=== PATIENT | female | born 1970 | race Native Hawaiian/Other Pacific Islander ===

== ENCOUNTER 2018-11-10 05:50 | Inpatient (IN) | payer OTHER ==
[2018-11-07 10:46] LABS: BASOPHILS # (AUTO) 0.1 K/uL (0.0-0.2); BASOPHILS % (AUTO) 0.8 % (0.0-2.0); EOSINOPHILS # (AUTO) 0.3 K/uL (0.0-0.4); HEMATOCRIT 36.2 % (36-48); HEMOGLOBIN 11.3 g/dL (12.0-16.0); LYMPHOCYTES # (AUTO) 1.7 K/uL (1.0-5.5); LYMPHOCYTES % (AUTO) 19.1 % (20.5-51.5); MEAN CORPUSCULAR HEMOGLOBIN 24 pg (27-31); MEAN CORPUSCULAR HGB CONC 31 % (32-36); MEAN CORPUSCULAR VOLUME 78 fL (79.0-98.0); MONOCYTES # (AUTO) 0.5 K/uL (0.0-1.0); NEUTROPHILS # (AUTO) 6.1 K/uL (1.8-7.7); NEUTROPHILS % (AUTO) 71.1 % (40.0-70.0); PLATELET COUNT (AUTO) 352 K/uL (130-430); RED BLOOD CELL COUNT(AUTO) 4.64 MIL/uL (4.2-6.2); RED CELL DISTRIBUTION WIDTH 18.4 % (9.0-15.0); WHITE BLOOD COUNT (AUTO) 8.6 K/uL (4.8-10.8)
[2018-11-07 10:51] LABS: BILIRUBIN,URINE NEGATIVE (NEGATIVE); BLOOD, URINE NEGATIVE (NEGATIVE); CLARITY/URINE SL HAZY (CLEAR); COLOR,URINE YELLOW (YELLOW); GLUCOSE,URINE NEGATIVE (NEGATIVE); KETONES,URINE NEGATIVE (NEGATIVE); LEUKOCYTE ESTERASE ,URINE NEGATIVE (NEGATIVE); NITRITE, URINE NEGATIVE (NEGATIVE); PH,URINE 5.5 (5.0-8.0); PROTEIN URINE NEGATIVE (NEGATIVE); UROBILINOGEN,URINE 0.2 (0.2-1.0)
[2018-11-07 11:04] LABS: CALCIUM 8.6 mg/dL (8.4-11.0); CREATININE 0.64 mg/dL (0.55-1.30); POTASSIUM 4.1 mmol/L (3.5-5.1)
[~2018-11-10] VITALS: Ht 170.2 cm; Wt 86.2 kg
[2018-11-10] MEDS ORDERED: LevALBUTEROL HCL 1.25 MG/0.5 ML *CONC.* VIAL.NEB (XOPENEX CONC.) INH SCH (06:30)
[2018-11-10] MEDS ORDERED: LevALBUTEROL HCL 1.25 MG/0.5 ML *CONC.* VIAL.NEB (XOPENEX CONC.) INH ONE (06:46)
[2018-11-10] MEDS ORDERED: CEFAZOLIN SOD 1 GM in D5W 50 ML IV ONE (07:00)
[2018-11-10] MEDS ORDERED: LR 1,000 ML IV SCH ×2 (09:02→10:25)
[2018-11-10] MEDS ORDERED: HYDROmorphone 1 MG INJ. 1 MG/ML AMPUL IVP PRN (09:15)
[2018-11-10] MEDS ORDERED: HYDROmorphone 2 MG/ML VIAL IVP PRN ×2 (09:15)
[2018-11-10] MEDS ORDERED: MEPERIDINE HCL/PF 25 MG/ML DISP.SYRIN IVP PRN (09:15)
[2018-11-10] MEDS ORDERED: OXYCODONE/ACETAMINOPHEN 5-325 TABLET PO PRN (10:30)
[2018-11-10] MEDS ORDERED: ONDANSETRON HCL 4 MG/2 ML VIAL IVP PRN (10:30)
[2018-11-10 10:40] VITALS: BP_SYST 110
[2018-11-10] MEDS ORDERED: SEVOFLURANE 15 MIN GAS INH ONE (10:45)
[2018-11-10] MEDS ORDERED: ROCURONIUM BROMIDE 10 MG/ML (ZEMURON) ONE (10:45)
[2018-11-10] MEDS ORDERED: NS IRRIG SOLN 1000 ML IR ONE (10:45)
[2018-11-10] MEDS ORDERED: LR 1,000 ML IV.SOLN IV ONE (10:45)
[2018-11-10] MEDS ORDERED: CEFAZOLIN 2 GM IVPB PREMIX 50 ML IV ONE (10:45)
[2018-11-10] MEDS ORDERED: MIDAZOLAM HCL 5 MG/ML VIAL (VERSED) IV ONE (10:45)
[2018-11-10] MEDS ORDERED: ONDANSETRON HCL 4 MG/2 ML VIAL ONE (10:45)
[2018-11-10] MEDS ORDERED: PROPOFOL 200MG/ 20ML VIAL (DIPRIVAN) IV ONE (10:45)
[2018-11-10] MEDS ORDERED: ROPIVACAINE HCL/PF 5 MG/ML 0.5% 30 ML VIAL ONE (10:45)
[2018-11-10] MEDS ORDERED: KETOROLAC TROMETHAMINE 30 MG VIAL ONE (10:45)
[2018-11-10] MEDS ORDERED: fentaNYL CITRATE 250 MCG/5 ML AMP ONE (10:45)
[2018-11-10] MEDS ORDERED: DEXAMETHASONE SOD PHOSPHATE 4 MG/ML VIAL ONE (10:45)
[2018-11-10] MEDS ORDERED: HYDROmorphone 2 MG/ML VIAL ONE ×2 (11:19→11:37)
[2018-11-10] MEDS ORDERED: MEPERIDINE HCL/PF 50 MG/ML AMP IM PRN (11:45)
[2018-11-10] MEDS: OXYCODONE/ACETAMINOPHEN 5-325 TABLET PO PRN (18:25)
[2018-11-10] MEDS: IBUPROFEN 800 MG TABLET PO PRN (19:48)
[2018-11-10] MEDS: SIMETHICONE 80 MG TAB.CHEW PO PRN (19:48)
[2018-11-10] MEDS ORDERED: OXYCODONE/ACETAMINOPHEN 5-325 TABLET PO ONE (20:00)
[2018-11-10] MEDS ORDERED: TEMAZEPAM 15 MG CAPSULE PO PRN (21:00)
[2018-11-10] MEDS ORDERED: SENNOSIDES/DOCUSATE SODIUM 1 TAB TABLET(SENOKOT-S) PO PRN ×2 (21:00)
[2018-11-11] MEDS: SIMETHICONE 80 MG TAB.CHEW PO PRN ×2 (06:00→09:05)
[2018-11-11] MEDS: IBUPROFEN 800 MG TABLET PO PRN ×2 (06:00→12:22)
[2018-11-11 07:32] LABS: HEMATOCRIT 28.1 % (36-48)
[2018-11-11] MEDS: OXYCODONE/ACETAMINOPHEN 5-325 TABLET PO PRN (10:38)
== END 2018-11-11 14:15 | disposition home or self-care (01) | DRG 743 ==
LOC: SMU 05:50 → SPU 12:24
PROVIDERS: ADMIT Obstetrics & Gynecology; ATTEND Obstetrics & Gynecology
PROC: 0UB70ZZ Excision of Bilateral Fallopian Tubes, Open Approach (ICD-10-PCS; 2018-11-10)
PROC: 3E0T3BZ Introduction of Anesthetic Agent into Peripheral Nerves and Plexi, Percutaneous Approach (ICD-10-PCS; 2018-11-10)
PROC: 0UT90ZZ Resection of Uterus, Open Approach (ICD-10-PCS; principal; 2018-11-10 07:30)
DX: D25.9 Leiomyoma of uterus, unspecified (principal); E66.9 Obesity, unspecified; J45.909 Unspecified asthma, uncomplicated; Z68.29 Body mass index [BMI] 29.0-29.9, adult
CPT/HCPCS: 36415; 80048; 81003; 84703; 85018-TC; 85025; 86886; 86900; 86901; 87081; 88302; 88307; 94640; J0690; J1100; J1170; J1885; J2175; J2250; J2405; J2704; J3010; J7060; J7120; J7612

== ENCOUNTER 2021-06-18 09:43 | Emergency (ER) | payer OTHER ==
[~2021-06-18] VITALS: Ht 170.2 cm; Wt 86.2 kg
--- NOTE | 2021-06-18 09:52 | NUR ---
Pt to bed 7 for evaluation with report given to CONNIE Grady who will assume care.
[2021-06-18 09:53] VITALS: BP_SYST 114
--- NOTE | 2021-06-18 09:53 | NUR ---
C/C lower Abd pain x 4 days, no trauma, patient AOx4 in no acute distress. Patient in room sitting up in chair, UA cup given for sample.
--- NOTE | 2021-06-18 10:13 | NUR ---
laboratory technology teacher at bedside
[2021-06-18] MEDS ORDERED: NACL 0.9% 1,000 ML IV ONE (10:15)
--- NOTE | 2021-06-18 10:16 | NUR ---
Urine brought to lab
--- NOTE | 2021-06-18 10:25 | NUR ---
EKG dont at bedside, results given to
--- NOTE | 2021-06-18 10:45 | NUR ---
PIV placed to Left forearm 22G, patient tolerated well.
--- NOTE | 2021-06-18 10:45 | NUR ---
Lab at bedside performing blood draw
[2021-06-18 10:47] LABS: BASOPHILS % (AUTO) 0.5 % (0.0-2.0); EOSINOPHILS % (AUTO) 0.3 % (0.0-4.0); HEMATOCRIT 41.7 % (36-48); HEMOGLOBIN 13.9 g/dL (12.0-16.0); LYMPHOCYTES # (AUTO) 0.9 K/uL (1.0-5.5); LYMPHOCYTES % (AUTO) 13.9 % (20.5-51.5); MEAN CORPUSCULAR HEMOGLOBIN 29 pg (27-31); MEAN CORPUSCULAR HGB CONC 33 % (32-36); MEAN CORPUSCULAR VOLUME 87 fL (79.0-98.0); MONOCYTES # (AUTO) 0.5 K/uL (0.0-1.0); MONOCYTES % (AUTO) 8.2 % (1.7-9.3); NEUTROPHILS # (AUTO) 4.8 K/uL (1.8-7.7); NEUTROPHILS % (AUTO) 77.1 % (40.0-70.0); PLATELET COUNT (AUTO) 243 K/uL (130-430); RED BLOOD CELL COUNT(AUTO) 4.77 MIL/uL (4.2-6.2); RED CELL DISTRIBUTION WIDTH 13.9 % (9.0-15.0); WHITE BLOOD COUNT (AUTO) 6.2 K/uL (4.8-10.8)
[2021-06-18 10:56] LABS: ANION GAP 12 (5-15); CALCIUM 9.2 mg/dL (8.4-11.0); CHLORIDE 100 mmol/L (98-107); CREATININE 0.73 mg/dL (0.55-1.30); GLUCOSE 82 mg/dL (70-99); POTASSIUM 3.5 mmol/L (3.5-5.1); SODIUM SERUM 134 mmol/L (136-145); UREA NITROGEN, BLOOD 12 mg/dL (8-21)
--- NOTE | 2021-06-18 11:02 | NUR ---
Patient taken to CT for imaging
[2021-06-18 11:10] LABS: ALANINE AMINOTRANSFERASE 35 U/L (12-78); ALBUMIN 3.2 g/dL (3.4-4.8); ASPARTATE AMINOTRANSFERASE 32 U/L (10-37); LIPASE 58 U/L (73-393)
[2021-06-18 11:11] LABS: GFR AFRICAN AMERICAN 109 mL/min (>90); TOTAL BILIRUBIN < 0.1 mg/dL (0.0-1.0)
--- NOTE | 2021-06-18 11:15 | NUR ---
Patient back from CT
[2021-06-18 11:25] LABS: BILIRUBIN,URINE NEGATIVE (NEGATIVE); BLOOD, URINE 2+ (NEGATIVE); CLARITY/URINE CLEAR (CLEAR); COLOR,URINE YELLOW (YELLOW); GLUCOSE,URINE NEGATIVE (NEGATIVE); KETONES,URINE 3+ (NEGATIVE); LEUKOCYTE ESTERASE ,URINE NEGATIVE (NEGATIVE); NITRITE, URINE POSITIVE (NEGATIVE); PROTEIN URINE 1+ (NEGATIVE); UROBILINOGEN,URINE 0.2 (0.2-1.0)
[2021-06-18 11:43] LABS: BACTERIA,URINE MANY /HPF (None Seen); WBC,URINE 0-3 /HPF (0-3)
[2021-06-18] MEDS ORDERED: cefTRIAXone 1 GM VIAL ONE (11:45)
[2021-06-18] MEDS ORDERED: cefTRIAXone 1 GM in D5W 50 ML IV ONE (11:45)
--- NOTE | 2021-06-18 11:49 | NUR ---
Abx given as ordered, education provided and all questions answered.
[2021-06-18] MEDS ORDERED: CEPH250C PO (12:05)
[2021-06-18 12:13] VITALS: BP_SYST 114
--- NOTE | 2021-06-18 12:14 | NUR ---
Patient given written and verbal discharge instructions and verbalizes understanding. ER MD discussed with patient the results and treatment provided. Patient in stable condition. ID arm band removed. IV catheter removed intact and dressing applied, no active bleeding. Rx of given. Patient educated on pain management and to follow [employer] for questions provided and answered. Medication side effect fact sheet provided.
== END 2021-06-18 12:14 | disposition home or self-care (01) ==
LOC: SED 09:43
DX: E86.0 Dehydration (principal); N39.0 Urinary tract infection, site not specified; E88.89 Other specified metabolic disorders; R53.1 Weakness
CPT/HCPCS: 36415; 71045; 74176; 76376; 80053; 81000; 81025; 82962; 83605; 83690; 83735; 84484; 85025; 87040; 93005; 96361; 96374; 99285; J0696; J7030; J7060

== ENCOUNTER 2023-02-17 06:19 | Emergency (ER) | payer OTHER ==
[~2023-02-17] VITALS: Ht 170.2 cm; Wt 87.1 kg
[~2023-02-17 06:19] MED LIST: CEPH250C PO
[2023-02-17 06:40] VITALS: BP_SYST 116; PULSE 105; RESP 16; TEMP 97.9; O2SAT 97
[2023-02-17 07:16] LABS: BASOPHILS % (AUTO) 0.4 % (0.0-2.0); EOSINOPHILS % (AUTO) 0.2 % (0.0-4.0); HEMATOCRIT 42.6 % (36-48); HEMOGLOBIN 14.3 g/dL (12.0-16.0); LYMPHOCYTES # (AUTO) 0.7 K/uL (1.0-5.5); LYMPHOCYTES % (AUTO) 6.5 % (20.5-51.5); MEAN CORPUSCULAR HEMOGLOBIN 29 pg (27-31); MEAN CORPUSCULAR HGB CONC 34 % (32-36); MEAN CORPUSCULAR VOLUME 88 fL (79.0-98.0); MONOCYTES # (AUTO) 0.9 K/uL (0.0-1.0); MONOCYTES % (AUTO) 7.5 % (1.7-9.3); NEUTROPHILS # (AUTO) 9.8 K/uL (1.8-7.7); NEUTROPHILS % (AUTO) 85.4 % (40.0-70.0); PLATELET COUNT (AUTO) 309 K/uL (130-430); RED BLOOD CELL COUNT(AUTO) 4.86 MIL/uL (4.2-6.2); WHITE BLOOD COUNT (AUTO) 11.4 K/uL (4.8-10.8)
[2023-02-17 07:41] LABS: CALCIUM 8.8 mg/dL (8.4-11.0); CREATININE 0.77 mg/dL (0.55-1.30)
[2023-02-17 07:45] LABS: ALBUMIN 3.5 g/dL (3.4-4.8); BILIRUBIN,DIRECT 0.1 mg/dL (0.0-0.3); TOTAL BILIRUBIN 0.4 mg/dL (0.0-1.0); TOTAL PROTEIN, SERUM 7.4 g/dL (6.4-8.3)
[2023-02-17 09:28] LABS: BILIRUBIN,URINE NEGATIVE (NEGATIVE); BLOOD, URINE NEGATIVE (NEGATIVE); COLOR,URINE YELLOW (YELLOW); GLUCOSE,URINE NEGATIVE (NEGATIVE); KETONES,URINE NEGATIVE (NEGATIVE); LEUKOCYTE ESTERASE ,URINE 1+ (NEGATIVE); NITRITE, URINE NEGATIVE (NEGATIVE); PH,URINE 7.5 (5.0-8.0); PROTEIN URINE 1+ (NEGATIVE); UROBILINOGEN,URINE 0.2 (0.2-1.0)
[2023-02-17 09:28] LABS: INFLUENZA TYPE A Negative (NEGATIVE); INFLUENZA TYPE B NEGATIVE (NEGATIVE)
[2023-02-17 09:31] LABS: CLARITY/URINE HAZY (CLEAR)
[2023-02-17 09:32] LABS: BACTERIA,URINE MODERATE /HPF (None Seen)
[2023-02-17] MEDS ORDERED: CIPR500T5 PO (09:45)
[2023-02-17 10:34] VITALS: BP_SYST 116; PULSE 105; RESP 16; TEMP 97.9; O2SAT 97
== END 2023-02-17 10:34 | disposition home or self-care (01) ==
LOC: SED 06:19
DX: K42.9 Umbilical hernia without obstruction or gangrene (principal); R73.9 Hyperglycemia, unspecified; M54.50 Low back pain, unspecified; R30.0 Dysuria; R50.9 Fever, unspecified; J45.909 Unspecified asthma, uncomplicated; Z79.899 Other long term (current) drug therapy
CPT/HCPCS: 36415; 76376; 80048; 80076; 81000; 81001; 81015; 81025; 83690; 85025; 87086; 99284